=== PATIENT | female | born 1950 | race Two or more races ===

== ENCOUNTER 2025-03-09 22:06 | Emergency (ER) | payer OTHER, MEDICAID ==
[~2025-03-09] VITALS: Ht 157.5 cm; Wt 45.0 kg
[2025-03-09 22:25] VITALS: O2SAT 98
[2025-03-10 00:12] LABS: BASOPHILS % 0.1 % (0.0-2.0); EOSINOPHILS % 0.0 % (0.0-5.0); HEMATOCRIT. 43.6 % (36.0-48.0); HEMOGLOBIN. 14.3 g/dL (12.0-16.0); LYMPHOCYTES % 13.8 % (20.0-50.0); MEAN PLATELET VOLUME 8.2 fl (7.4-10.4); MONOCYTES % 4.3 % (2.0-8.0); NEUTROPHILS % 81.8 % (40.0-76.0); PLATELET 291 x1000/uL (130-400); RED BLOOD CELL COUNT 4.44 mill/uL (4.2-5.4); RED CELL DISTRIBUTION WIDTH 13.2 % (11.6-14.6)
[2025-03-10 00:40] LABS: TROPONIN I HIGH SENSITIVITY 73 ng/L (3.0-34)
[2025-03-10] MEDS ORDERED: SODIUM CHLORIDE 0.9% 500 ML IV ONE (01:30)
[2025-03-10 01:38] LABS: CREATININE 0.7 mg/dL (0.6-1.0)
[2025-03-10 01:39] LABS: ETHANOL BLOOD < 10 mg/dL (<10); PROTEIN TOTAL 7.5 g/dL (6.0-8.3); UREA NITROGEN BLOOD 11 mg/dL (9-23)
[2025-03-10 01:40] LABS: ASPARTATE AMINOTRANSFERASE 23 IU/L (<34)
[2025-03-10 01:41] LABS: BILIRUBIN DIRECT 0.1 mg/dL (<=3.0); BILIRUBIN TOTAL 0.6 mg/dL (0.1-1.0)
[2025-03-10] MEDS: SODIUM CHLORIDE 0.9% 250 ML IV ONE ×2 (01:47→05:18)
[2025-03-10 02:15] LABS: INR 1.0
[2025-03-10 02:38] LABS: TROPONIN I HIGH SENSITIVITY 75 ng/L (3.0-34)
[2025-03-10 04:21] LABS: CLARITY URINE CLEAR (CLEAR); COLOR URINE YELLOW (YELLOW); GLUCOSE URINE 3+ (NEGATIVE); KETONES URINE NEGATIVE (NEGATIVE); LEUKOCYTE ESTERASE URINE NEGATIVE (NEGATIVE); NITRITE URINE NEGATIVE (NEGATIVE); OCCULT BLOOD URINE NEGATIVE (NEGATIVE); PH URINE 5.0 (4.5-8.0); PROTEIN URINE 1+ (NEGATIVE); SPECIFIC GRAVITY URINE 1.027 (1.005-1.030); UROBILINOGEN URINE 0.2 E.U./dL (0.2-1.0)
[2025-03-10] MEDS: ACETAMINOPHEN 10MG/ML SYR IV ONE (05:18)
[2025-03-10 05:24] VITALS: BP 124/72; PULSE 99; RESP 10; TEMP 35.6; O2SAT 100
[2025-03-10 05:38] LABS: *AMPHETAMINES SCREEN URINE NEGATIVE (NEGATIVE); *BARBITURATES SCREEN URINE NEGATIVE (NEGATIVE); *BENZODIAZEPINES SCREEN URINE NEGATIVE (NEGATIVE); *COCAINE SCREEN URINE NEGATIVE (NEGATIVE); METHADONE URINE SCREEN NEGATIVE (NEGATIVE); OPIATES URINE SCREEN PRESUMPTIVE POSITIVE (NEGATIVE)
[2025-03-10 05:39] LABS: CANNABINOID URINE SCREEN NEGATIVE (NEGATIVE); ECSTASY MDMA SCREEN URINE NEGATIVE (NEGATIVE); PHENCYCLIDINE URINE SCREEN NEGATIVE (NEGATIVE)
[2025-03-10 06:09] LABS: INFLUENZA TYPE A Presumptive Negative (Pres. Neg.); INFLUENZA TYPE B Presumptive Negative (Pres. Neg.); RESPIRATORY SYNCYTIAL VIRUS Not Detected (Not Detectd)
[2025-03-10 07:15] LABS: SQUAMOUS EPITHELIAL CELL URINE 1+ /lpf (RARE/1+); WBC URINE 0-2 /hpf (0-2)
[2025-03-10 07:16] LABS: BACTERIA URINE TRACE; RBC URINE NONE SEEN /hpf (0-2)
[2025-03-10 07:19] LABS: URIC ACID CRYSTALS URINE 2+ /lpf; YEAST URINE NONE SEEN
== END 2025-03-10 05:53 | disposition short-term general hospital (02) ==
LOC: ER 22:06 → CMPBEDREQ 03-10 07:09
DX: T40.2X1A Poisoning by other opioids, accidental (unintentional), initial encounter (principal); E11.65 Type 2 diabetes mellitus with hyperglycemia; R06.02 Shortness of breath; Y92.89 Other specified places as the place of occurrence of the external cause
CPT/HCPCS: 80329; 82140; 85025; 84484 ×2; 36415 ×2; 71045; 93005 ×2; 99285; 80076; 80305; 80048; 81003; 80307; 80320; 82962; 83880; 85610; 85730; 87420; 87804 ×2; 96360; J7050; A6449; A4606; G0480; J0131